=== PATIENT | male | born 1985 | race Caucasian/White ===

== ENCOUNTER 2018-06-02 10:53 | Emergency (ER) | payer OTHER ==
[2018-06-02] MEDS ORDERED: LORazepam 1 MG TAB PO ONE (11:31)
--- NOTE | 2018-06-02 12:06 | EDPHY ---
H & P Time Seen by Provider: 06/02/18 10:56 HPI/ROS: CHIEF COMPLAINT: Shaking, high heart rate. HISTORY OF PRESENT ILLNESS: Patient is states he has been "shaking, not eating " for several days. He states that a week ago yesterday his girlfriend to 6 years left him suddenly. He did not know that she was planning to do this. He also lost his job at about the same time. He states that he has been very sad, anxious, depressed, feeling hopeless but denies suicidal ideations or wanting to kill or hurt himself. He was able to go visit his father up in [facility] and do a couple days of skiing last week. He states he has had some nausea, decreased appetite and 1 episode of dry heaves a few days ago but denies abdominal pain. He has had no chest pain or shortness of breath. He denies fevers or chills. He has had very mild URI symptoms and a bloody nose yesterday which was not prolonged. Although he has not been eating he has been drinking lemonade and Pedialyte. He states he drinks a couple of beers a day and has been having a little bit more over the last week. He also uses cannabis. Contents of 10 point review of systems otherwise negative except for what is mentioned in HPI. General Appearance: Alert, moderate distress Eyes: Pupils equal and round no pallor or injection. ENT, Mouth: Mucous membranes moist. Respiratory: There are no retractions, lungs are clear to auscultation. Cardiovascular: Regular rate and rhythm.Tachycardic. Gastrointestinal: Abdomen is soft and nontender, no masses, bowel sounds normal. Neurological: Awake, alert, normal cranial nerves. Normal strength and sensation throughout, some tremulousness present. Skin: Warm and dry, no rashes. Musculoskeletal: Neck is supple nontender. Extremities are symmetrical, full range of motion, no edema. Psychiatric: Patient is oriented X 3, he is anxious, upset, tearful at times. Medical/surgical history: Kidney stones, shoulder surgery, splenic surgery. Mother with history of multiple suicide attempts although of complications related to gastric bypass surgery. Social history: No tobacco, daily alcohol, uses cannabis. Smoking Status: Never smoked Constitutional: Initial Vital Signs Temperature (C) 36.6 C 06/02/18 11:05 Heart Rate 102 H 06/02/18 11:05 Respiratory Rate 22 H 06/02/18 11:05 Blood Pressure 144/105 H 06/02/18 11:05 O2 Sat (%) 97 06/02/18 11:05 O2 Delivery Mode Room Air Allergies/Adverse Reactions: hydrocodone Allergy (Verified 06/02/18 11:05) Home Medications: Medication Instructions Recorded NK [No Known Home Meds] 11/03/15 Medical Decision Making - Diagnostics EKG Interpretation: EKG performed for tachycardia. EKG shows normal sinus rhythm with normal rate of 78, normal intervals, normal axis. No acute ST T-wave changes to suggest ischemia. Impression normal EKG. ED Course/Re-evaluation: 12:10 re-evaluation after single mg of oral Ativan. Heart rate in the 80s, blood pressure 132/94, decreased tremulousness and states feels less anxious. Differential Diagnosis: Differential diagnosis includes but is not limited to grief reaction, panic attack, alcohol withdrawal, drug intoxication, atrial fibrillation or flutter. After evaluation likely grief reaction with acute anxiety and depression however may represent element of mild alcohol withdrawal. Patient did respond quite well to single mg of oral Ativan. Reassessment patient feeling better, continues to deny suicidal ideations, will plan on staying with his father in [facility] over the next few days. He understands not to drive this afternoon as he was given Ativan. I also emphasized the benefit of therapy and reviewed return precautions in detail. - Data Points Medications Given: Discontinued Medications Lorazepam (Ativan) 1 mg PO EDNOW ONE Stop: 06/02/18 11:32 Last Admin: 06/02/18 11:38 Dose: 1 mg Departure - Departure Clinical Impression: Grief reaction Condition: Fair Instructions: Grief and Loss (ED) Additional Instructions: Please what short use of alcohol. No driving this afternoon as we gave you Ativan which is a sedating medication. I encourage you to spend some time with her father over the next few days. If your symptoms are not improving you should pursue seen a therapist either through your primary care physician or through 1 of the many crisis hot lines. [facility] could be quite helpful. If you have any thoughts of suicide please return to the emergency department or reach out for assistance. Referrals: NONE *PRIMARY CARE P,. [Primary Care Provider] - As per Instructions
[2018-06-02 12:44] VITALS: BP 134/90
--- NOTE | 2018-06-02 13:53 | CPEKG ---
Test Reason : OPEN Blood Pressure : / mmHG Vent. Rate : 078 BPM Atrial Rate : 075 BPM P-R Int : 132 ms QRS Dur : 107 ms QT Int : 401 ms P-R-T Axes : 049 064 017 degrees QTc Int : 457 ms Sinus rhythm Confirmed by Shante Farley ([id number]) on 06/02/2018 1:53:23 PM Referred By: Shante Farley Confirmed By:Shante Farley
== END 2018-06-02 12:40 | disposition home or self-care (01) ==
LOC: CED 10:53
DX: F43.20 Adjustment disorder, unspecified (principal)
CPT/HCPCS: 99283-ER